=== PATIENT | female | born 1970 | race Caucasian/White ===

== ENCOUNTER 2018-04-14 18:43 | Emergency (ER) | payer OTHER ==
[~2018-04-14] VITALS: Ht 139.7 cm; Wt 49.0 kg
[~2018-04-14 18:43] MED LIST: ACTICIN 5% CREA60 G1 TOP; AUGMENTIN 500-1 EACH PO; BACTROBAN CREAM30 G1 TOP; EXCEDRIN MIGRA1 EAC1 PO; HYDROCODON-ACE1 EACH PO; HYDROCODONE-AP1 EAC6 PO; IBUPROFEN 800800 M1 PO; IBUPROFEN 800800 MG PO; KEFLEX500 MG PO; LIDOCAINE VISC100 M1 SWISH&SPIT; NAPROSYN500 MG PO; NOHOMEMEDICATIONS; NORCO 5-325 TA1 EACH PO; PENICILLIN V P500 MG PO; PREDNISONE 10 M10 MG PO; ROBAXIN 750 MG750 M1 PO; ROBAXIN500 MG PO; TAMIFLU75 MG PO; TRAMADOL 50 MG50 MG PO
[2018-04-14] MEDS ORDERED: NORCO 5-325 TA1 EACH PO (20:02)
[2018-04-14 20:37] VITALS: BP 106/58
[2018-07-08] MEDS ORDERED: WELLBUTRIN 100100 MG PO (11:12)
[2018-07-08] MEDS ORDERED: FLEXERIL PO (11:12)
[2018-07-08] MEDS ORDERED: NORTRIPTYLINE H10 M2 PO (11:13)
[2018-07-24] MEDS ORDERED: NORCO 5-325 TA1 EACH PO (08:14)
== END 2018-04-14 20:37 | disposition home or self-care (01) ==
LOC: M.ERS 18:43
DX: S67.192A Crushing injury of right middle finger, initial encounter (principal); F17.210 Nicotine dependence, cigarettes, uncomplicated; Z88.5 Allergy status to narcotic agent; W23.0XXA Caught, crushed, jammed, or pinched between moving objects, initial encounter; Y93.89 Activity, other specified; Y92.89 Other specified places as the place of occurrence of the external cause; Y99.8 Other external cause status

== ENCOUNTER → 2018-07-08 | Outpatient (CLI) | payer OTHER ==
[~2018-07-08] MED LIST changes: +FLEXERIL PO; +NORTRIPTYLINE H10 M2 PO; +WELLBUTRIN 100100 MG PO
--- NOTE | 2018-08-06 15:56 | PAINCON ---
[address] [address] PAIN MANAGEMENT CONSULTATION Name: DAVISFROYLAN Mar [id number] Admission: 07/08/18 Attend Phys: Romeo Ocampo MD Discharge: Date of : 68 Report #: [id number] THIS REPORT FOR: //name// CC: Marquita Ocampo DATE OF SERVICE: 07/08/2018 PRIMARY CARE PHYSICIAN: Marquita Sylvester DO CHIEF COMPLAINT: Low back pain. HISTORY OF PRESENT ILLNESS: The patient is a 48-year-old female who has been referred to the pain clinic. The patient has a history of low back pain. It has been problematic for a number of years. She has had lumbar radiculopathy in the past. States that this pain is different from that pain. She did have pain, which was radiating down into her right buttocks and leg. She feels that this pain is different. It is constant and aching. 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 Notes that the pain continues to be quite problematic. She rates it as an 8/10. Certain exercises exacerbate the discomfort. Finds that Diclofenac is helpful. Also, finds muscle spasms improved with use of Flexeril. Pain does impact her ability to do her job. Pain can increase from a baseline of 6 to 9-10 at the end of the day. States that she had an x-ray of her back and things were "okay." Denies any bowel or bladder dysfunction as a result of the pain. The patient did try gabapentin. Notes that this medication caused heart palpitations. A recent x-ray taken showed no acute compression fractures or subluxations of the lumbar spine. She did have moderate spondylosis involving L4-L5 and L5-S1. ALLERGIES: CODEINE CAUSES ITCHING. GABAPENTIN CAUSED SOME HEART PALPITATIONS AND SIDE EFFECTS. CURRENT MEDICATIONS: Diclofenac 50 mg b.i.d., Flexeril 10 mg 1 p.o. t.i.d., nortriptyline 25 mg 1 at bedtime, and bupropion 100 mg b.i.d. PAST MEDICAL HISTORY: Migraine headaches, which are episodic. Renal stones, last flare 2007, hepatitis C, history of IV drug use in 10 years, has used meth, and history of hepatitis panel with hepatitis C antibody test reactive. PAST SURGICAL HISTORY: 1. Tubal ligation. 2. Back surgery for ruptured disk, L4-L5, [facility] in 1999. 3. Cholecystectomy in 1998. 4. Left knee arthroscopy for chipped bone. 5. Right ankle surgery, ganglion cyst. 6. Left ring [place] [address] PAIN MANAGEMENT CONSULTATION Name: FROYLAN DAVIS Room: [facility]#: [id number] Admission: 07/08/18 Attend Phys: Romeo Ocampo MD Discharge: Date of : 68 Report #: [id number] 7. Comminuted fracture in 2013. 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 She is working at this juncture. REVIEW OF SYSTEMS: Generally good health, headaches/migraines, back pain, difficulty walking, frequent recurring headaches, numbness and tingling sensation in fingers with yawning. PAIN CLINIC ASSESSMENT: 1. Osteoarthritis. The patient is not being treated for osteoarthritis. 2. Rheumatoid arthritis. The patient is not being treated for rheumatoid arthritis. 3. Height 4 feet 6 inches, weight 111 pounds, BMI is 26.9. 4. Vital Signs: blood pressure 116/70, heart rate 90, respiratory rate 16, room air saturation 95%, temperature 98.3. 5. Pain intensity 8/10. 6. Fall history: The patient has not fallen in the last 3 months. 7. Blood thinner. The patient is not on a blood thinning medication. 8. History of hypertension. The patient has not been treated for hypertension. 9. Opioid therapy greater than 6 weeks. The patient is not receiving opioid therapy other than on occasion from Dr. Sylvester. 10. Risk assessment tool elevated for opioid use. 11. Functional assessment tool 48/70 for pain impact score. 12. Recreational drug use. The patient denies recreational drug use at this juncture. 13. Tobacco: The patient smokes 1 pack of cigarettes per day and has smoked for the last 20 years. Discussed with the benefits of smoking cessation with the patient. 14. Alcohol: The patient drinks alcoholic beverages only on occasion. PHYSICAL EXAMINATION: GENERAL: The patient is a well-developed, well-nourished white female. She is short for stature. HEENT: Normocephalic, atraumatic. Extraocular eye muscles intact. Sclerae nonicteric. Mucous membranes are moist. NECK: Without adenopathy or JVD. HEART: Regular rate. S1, S2. ABDOMEN: Nontender. Bowel sounds are present. LUNGS: Clear to auscultation without rhonchi or rales. EXTREMITIES: Upper extremity muscle strength is judged to be 5/5 for the major muscle groups in the upper extremity. Deep tendon reflexes +1 for the biceps bilaterally. Triceps and brachioradialis absent. [employer] strength 5/5. The patient has a ring finger, status post pin placement. The patient states she slammed her finger in the car door some time ago. Lower extremity, the patient with muscle strength to be 5/5 for the major muscle groups. She is able to rise [facility] [address] [place] [address] PAIN MANAGEMENT CONSULTATION Name: FROYLAN DAVIS [facility]: [facility].#: [id number] Admission: 07/08/18 Attend Phys: Romeo Ocampo MD Discharge: Date of : 68 Report #: [id number] on her toes. Rises on her heels. Left and right lateral bending were not very problematic. Left and right lateral rotation cause some increased pain in the right low back area. Lumbar extension cause increased pain and discomfort in the lumbar area. The patient in the sitting position with notes recurrence and reproduction of pain and discomfort in the lumbar area with palpation in the area of the left as well as the right L5-S1 area in the paraspinous muscle area near the posterior superior iliac spine. Palpation in these areas, both reproduce pain and discomfort, which the patient is complaining. Anterior spring test was negative. Posterior spring test negative. Left and right Sim's sign or Sim's maneuver generally unremarkable. Deep tendon reflexes trace at the knees bilaterally. Absent at the ankles. IMPRESSION: 1. Myofascial pain, low back area with palpation in the low back area. 2. Migraine headaches, which are episodic. 3. Renal stones, last flare 2007. 4. Hepatitis C. 5. History of IV drug use in 10 years. 6. Has used methamphetamine. 7. History of hepatitis panel with hepatitis C antibody test reactive. RECOMMENDATIONS: We discussed treatment options with the patient. Risks and benefits of trigger point injections were discussed. Possible complications of the procedures were reviewed. The patient will return to the pain clinic after information has been presented to her insurance company. She will return at which time we will consider trigger point injections to the left than the right posterior superior iliac spine area near the gluteus caridad and latissimus dorsi. We would like to thank you for letting us participate in her care. We hope she continues to improve. <ELECTRONICALLY SIGNED> By: Romeo Ocampo MD 08/06/18 1556 1224 1444N. Alvino Ocampo MD /nt
== END ==
LOC: M.PC 05:18
DX: M79.18 Myalgia, other site (principal); G43.909 Migraine, unspecified, not intractable, without status migrainosus; N20.0 Calculus of kidney; B19.20 Unspecified viral hepatitis C without hepatic coma; Z79.899 Other long term (current) drug therapy

== ENCOUNTER → 2018-07-24 | Outpatient (CLI) | payer OTHER ==
--- NOTE | 2018-08-06 16:28 | PAINCON ---
[address] [address] PAIN MANAGEMENT CONSULTATION Name: FROYLAN DAVIS Room: [facility] [place]#: [id number] Admission: 07/24/18 Attend Phys: Romeo Ocampo MD Discharge: Date of : 68 Report #: [id number] THIS REPORT FOR: //name// CC: Marquita Ocampo DATE OF SERVICE: 07/24/2018 FOLLOWUP COMPLAINT: "Here for an injection in the low back." FOLLOWUP HISTORY: The patient is a 48-year-old female who has been seen in the Pain Clinic. As you recall, she has back pain. She has had pain for a number of years. She has had problems with lumbar radiculopathy. She has had some pain, which has radiated down her buttocks in the past. At this point, she feels that this pain is located in the lower portion of her back. 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 These activities exacerbate her pain and discomfort. She has had pain, which has improved with use of Flexeril. She has pain, which she rates as a 5/10 at this juncture. This weekend, she noticed worsening of her pain. She has some difficulty to the point that she considered going to the Emergency Room that has improved somewhat. As you recall, she has hepatitis C. She is about to start treatment for this in the next couple of days. ALLERGIES: CODEINE CAUSED ITCHING, GABAPENTIN CAUSED HEART PALPITATIONS AND SIDE EFFECTS. PAIN CLINIC ASSESSMENT/PQRS: 1. Osteoarthritis: The patient is not being treated for osteoarthritis or rheumatoid arthritis. 2. Height 4 feet 6 inches, weight 114 pounds, BMI is 27.4. 3. Vital signs: Blood pressure 121/71, heart rate 85, respiratory rate 16, room air saturation is 98%, temperature 98.3. 4. Pain score: 5/10. 5. Fall history: The patient has not fallen in the last 3 months. 6. Blood thinner: The patient is not a blood thinning medication. 7. Hypertension: The patient is not being treated for hypertension. 8. Opioid therapy greater than 6 weeks: The patient is not on opioid medications. 9. Risk assessment tool. 10. Functional assessment tool: 48/70 for pain impact. 11. Recreational drug use: The patient denies use of recreational drugs at this juncture. 12. Tobacco: The patient smokes 1 pack of cigarettes per day and has for the past 20 years. We discussed the need for smoking cessation. 13. Alcohol: The patient denies use of alcoholic [place] [address] PAIN MANAGEMENT CONSULTATION Name: FROYLAN DAVIS Room: [facility]#: [id number] Admission: 07/24/18 Attend Phys: Romeo Ocampo MD Discharge: Date of : 68 Report #: [id number] PHYSICAL EXAMINATION: GENERAL: The patient is a well-developed, well-nourished white female. She is short in stature. HEENT: Normocephalic, atraumatic. Extraocular eye muscles intact. Sclerae nonicteric. Mucous membranes are moist. NECK: Without adenopathy or JVD. LUNGS: Clear to auscultation, without rhonchi or rales. HEART: Regular rate. S1 and S2. ABDOMEN: Nontender. Bowels sounds present. EXTREMITIES: Upper extremity muscle straight judged to be 5/5 for the major muscle groups. Lower extremity muscle strength judged to be 5/5 for the major muscle groups. The patient is without scoliosis, kyphosis or lordosis. Palpation in the area of the left as well as the right posterior superior iliac spine, near the gluteus caridad and latissimus dorsi both have trigger points which are prominent and cause a reproduction of the patient's pain and discomfort. IMPRESSION: 1. Myofascial pain in the low back area, left and right. 2. Migraine headaches, which are episodic. 3. Renal stones, last flare in 2007. 4. Hepatitis C. 5. History of IV drug use in the past. 6. The patient has used methamphetamine. 7. History of hepatitis panel, hepatitis C antibody test reactive. The patient now is to undergo treatment. RECOMMENDATIONS: We discussed treatment options with the patient. Risks and benefits of a trigger point injection in the low back area were again reviewed. The patient is having pain and discomfort, which seems to be of muscular in nature. Palpation in the area of the left as well as the right posterior superior iliac spine areas reproduce her pain and discomfort. She has returned today for an injection. Risks and benefits of the procedure were discussed. They include but are not limited to infection, increased muscle soreness, no improvement, worsening of pain, and she elects to proceed. PROCEDURE NOTE: The patient was taken to the procedure area. She was assisted in getting on the examination table. She was placed in a side position perpendicular to the bed. A chair was placed under her feet. The patient leaned forward as though she is going to tie her shoe. The trigger points were identified on the left and the right. The left area was sterilely prepped with a Betadine solution as well as the right. A 25-gauge needle was then advanced in the area of the left latissimus dorsi and gluteus caridad. The patient states this did reproduce her discomfort. A 25-gauge needle was then advanced into the area of discomfort. A total of 8 mL of 0.5% bupivacaine and 40 mg triamcinolone was injected on the left side. [place] [address] PAIN MANAGEMENT CONSULTATION Name: DAVISFROYLAN L Room: [facility]#: [id number] Admission: 07/24/18 Attend Phys: Romeo Ocampo MD Discharge: Date of : 68 Report #: [id number] manner. A total of 40 mg triamcinolone was injected with a total of 8 mL of 0.5% bupivacaine. The patient remained in the Pain Clinic for an appropriate amount of time. She will follow up in the future as needed. We would like to thank you for letting us participate in her care. We hope she continues to improve. <ELECTRONICALLY SIGNED> By: Romeo Ocampo MD 08/06/18 1628 0919 0948N. Alvino Ocampo MD /nt
== END | disposition home or self-care (01) ==
LOC: M.PC 02:48
DX: M79.18 Myalgia, other site (principal); G43.909 Migraine, unspecified, not intractable, without status migrainosus; B19.20 Unspecified viral hepatitis C without hepatic coma; Z87.442 Personal history of urinary calculi; Z88.6 Allergy status to analgesic agent; Z79.891 Long term (current) use of opiate analgesic; Z98.890 Other specified postprocedural states

== ENCOUNTER 2019-04-04 08:16 | Emergency (ER) | payer OTHER ==
[~2019-04-04] VITALS: Ht 139.7 cm; Wt 49.0 kg
[2019-04-04 10:21] VITALS: BP 118/74
== END 2019-04-04 10:23 | disposition home or self-care (01) ==
LOC: M.ERS 08:16
DX: G43.909 Migraine, unspecified, not intractable, without status migrainosus (principal); F17.210 Nicotine dependence, cigarettes, uncomplicated; Z88.5 Allergy status to narcotic agent

== ENCOUNTER 2020-04-24 07:56 | Emergency (ER) | payer OTHER ==
[~2020-04-24] VITALS: Ht 139.7 cm; Wt 49.9 kg
[2020-04-24] MEDS ORDERED: NORCO 5-325 TA1 EAC2 PO (09:01)
[2020-04-24 09:14] VITALS: BP 129/70
== END 2020-04-24 09:15 | disposition home or self-care (01) ==
LOC: M.ERS 07:56
DX: M54.5 Low back pain (principal); F17.210 Nicotine dependence, cigarettes, uncomplicated; Z88.5 Allergy status to narcotic agent; Z88.8 Allergy status to other drugs, medicaments and biological substances; Z98.51 Tubal ligation status

== ENCOUNTER 2021-04-11 17:25 | Emergency (ER) | payer OTHER ==
[~2021-04-11] VITALS: Ht 139.7 cm; Wt 49.9 kg
[~2021-04-11 17:25] MED LIST changes: +NORCO 5-325 TA1 EAC2 PO
[2021-04-11 17:33] VITALS: BP 125/64
== END 2021-04-11 18:45 | disposition left against medical advice (07) ==
LOC: M.ERS 17:25
DX: Z53.21 Procedure and treatment not carried out due to patient leaving prior to being seen by health care provider (principal)

== ENCOUNTER 2021-04-11 20:52 | Inpatient (IN) | payer OTHER ==
[~2021-04-11] VITALS: Ht 139.7 cm; Wt 52.2 kg
--- NOTE | ~2021-04-11 | EMS ---
[facility] [address] [place] [address] EMS Patient Care Report Name: FROYLAN DAVIS Room: [address] IN M.R.#: [id number] Admission: 04/11/21 Attend Phys: Florian Bell MD, Discharge: Date of : 68 Report #: [id number] THIS REPORT FOR: //name// Report Transmitted: 04/12/2021 06:25 EMS Care Summary [facility] Incident [id number] @ 04/11/2021 20:19 Incident Location [address] [place], [place] [id number] Patient FROYLAN DAVIS Female, 51 Years 1970 Patient Address [address] [place], [place] [id number] Patient History Back Pain (Chronic), Patient Allergies Codeine,Gabapentin, Patient Medications [place], Chief Complaint chest pain Disposition Transported No Lights/[place] Dispatch Reason Chest Pain (Non-Traumatic) Transported To [facility] Narrative Pt. was walk in at [facility]. Pt. stated that she c/o chest pain since approx. 1500 today. Pt. was seen in triage at [facility] and had left after EKG was done because her chest pain had subsided. Pt. stated that when she got back into [facility] her chest pain returned. Pt. described her pain as "burning, [place] [address] [place] [address] EMS Patient Care Report Name: FROYLAN DAVIS Room: [address] [place] M.R.#: [id number] Admission: 04/11/21 Attend Phys: Florian Bell MD, Discharge: Date of : 68 Report #: [id number] stabbing, and tight" radiating to the jaw. Pt. rated her pain 10/10. Initial EKG showed sinus rhythm with artifact and was repeated with more clear EKG showing sinus rhythm. En route IV was started, pt. received ASA and NTG bringing pain to 8/10. EKG during transport was sinus rhythm with artifact. EKG was repeated upon arrival at ED which showed ST elevation in leads 2, 3, and AVF showing possible inferior STEMI. ED staff was informed of changes right away and activated STEMI protocol. Pt. was transported to [facility] for emergency and cardiac services. Initial Vitals @20:31 @20:23 @20:48MI Suspected: true @20:40P: 87,R: 20,BP: 138/67,Pain: 8/10,GCS: 15,SpO2: 98,Revised Trauma: 12, @20:30P: 81,R: 20,BP: 126/77,Pain: 9/10,GCS: 15,SpO2: 99,Revised Trauma: 12, @20:19P: 82,R: 20,BP: 175/91,Pain: 10/10,GCS: 15,Glucose: 117,SpO2: 100,Revised Trauma: 12, Assessments @20:19MENTAL:No Abnormalities,SKIN:No Abnormalities,HEENT:Head/Face: No Abnormalities,Eyes: No Abnormalities,Neck/Airway: No Abnormalities,LUNG SOUNDS:General: No Abnormalities,Left Upper: No Abnormalities,Right Upper: No Abnormalities,Left Lower: No Abnormalities,Right Lower: No Abnormalities,ABDOMEN:General: No Abnormalities,Left Upper: No Abnormalities,Right Upper: No Abnormalities,Left Lower: No Abnormalities,Right Lower: No Abnormalities,PELVIS//GI:No Abnormalities,EXTREMITIES:Left Arm: No Abnormalities,Right Arm: No Abnormalities,Left Leg: No Abnormalities,Right Leg: No Abnormalities,PULSE:Radial: 2+ Normal,NEURO:No Abnormalities, Impression Chest Pain / Discomfort Procedures @20:2312-Lead ECGResponse: UnchangedSucceeded@20:4812-Lead ECGResponse: UnchangedSucceeded@20:3112-Lead ECGResponse: UnchangedSucceeded@20:28Saline Lock 10cc (20 ga) Site: Forearm-RightResponse: UnchangedSucceeded@20:30Aspirin - 324 Milligrams (mg) - OralResponse: Improved@20:33Nitroglycerin - 0.4 Milligrams (mg) - BuccalResponse: Improved Timeline 20:19,At Patient 20:19,Call Received 20:19,Dispatched 20:19,En Route 20:19,Initial Responder On Scene 20:19,[place] [address] EMS Patient Care Report Name: FROYLAN DAVIS Room: [address]#: [id number] Admission: 04/11/21 Attend Phys: Florian Bell MD, Discharge: Date of : 68 Report #: [id number] 20:19,BP: 175/91 M,PULSE: 82,RR: 20 R,SPO2: 100 Ox,ETCO2: ,B,PAIN: 10,GCS: 15, 20:23,12-Lead ECG,Response: UnchangedSucceeded, 20:23,BP: / M,PULSE: ,RR: R,SPO2: Ox,ETCO2: ,BG: ,PAIN: ,GCS: , 20:28,Depart Scene 20:28,Saline Lock 10cc 20 ga Site: Forearm-Right,Response: UnchangedSucceeded, 20:30,Aspirin - 324 Milligrams (mg) - Oral,Response: Improved 20:30,BP: 126/77 M,PULSE: 81,RR: 20 R,SPO2: 99 Ox,ETCO2: ,BG: ,PAIN: 9,GCS: 15, 20:31,12-Lead ECG,Response: UnchangedSucceeded, 20:31,BP: / M,PULSE: ,RR: R,SPO2: Ox,ETCO2: ,BG: ,PAIN: ,GCS: , 20:33,Nitroglycerin - 0.4 Milligrams (mg) - Buccal,Response: Improved 20:40,BP: 138/67 M,PULSE: 87,RR: 20 R,SPO2: 98 Ox,ETCO2: ,BG: ,PAIN: 8,GCS: 15, 20:47,At Destination 20:48,12-Lead ECG,Response: UnchangedSucceeded, 20:48,BP: / M,PULSE: ,RR: R,SPO2: Ox,ETCO2: ,BG: ,PAIN: ,GCS: , 20:50,Transfer Patient 21:04,Call Closed 21:19,In District Disclaimer v1.1 Copyright 2020 [employer] This EMS Care Summary contains data elements from the applicable legal record (which may be displayed differently). It is designed to provide pertinent information for the following purposes: continuity of care, clinical quality, and state data reporting. The complete legal record is available to ED staff and administrators of the receiving hospital in [facility]'s Patient Tracker. All data is provided "as is."
[2021-04-11 21:14] LABS: ABSOLUTE BASOPHILS 0.2 thou/uL (0.0-0.2); ABSOLUTE EOSINOPHILS 0.3 thou/uL (0.0-0.7); ABSOLUTE LYMPHOCYTES 3.9 thou/uL (0.8-5.3); BASOPHILS 1.3 %; EOSINOPHILS 1.7 %; HEMATOCRIT 40.5 % (37.0-47.0); LYMPHOCYTES 25.4 %; MCH 31.7 pg (26.0-34.0); MCHC 34.6 g/dL (28.0-37.0); MCV 91.7 fL (80.0-100.0); MONOCYTES 6.5 %; NUCLEATED RBCS 0 /100WBC; PLATELET COUNT* 238 thou/uL (150-400); POLYS 65.1 %; RBC 4.42 mil/uL (4.20-5.00); RDW-CV 13.4 % (10.5-14.5); WBC 15.4 thou/uL (4.0-11.0)
[2021-04-11 21:23] LABS: CALCIUM 8.8 mg/dL (8.5-10.1); CREATININE 0.9 mg/dL (0.6-1.3); POTASSIUM 3.6 mmol/L (3.5-5.1)
[2021-04-11 21:26] LABS: APTT 23.4 Seconds (25.0-31.3); INR 0.9; PROTIME 9.9 Seconds (9.20-11.50)
[2021-04-11 21:28] LABS: ALBUMIN 3.6 g/dL (3.4-5.0); TOTAL BILIRUBIN 0.2 mg/dL (<0.1-1.0); TOTAL PROTEIN 7.1 g/dL (6.4-8.2)
[2021-04-11 21:45] VITALS: BP 108/72
[2021-04-12] VITALS (17 sets, daily range): BP systolic 94–134; BP diastolic 52–80
[2021-04-12 03:29] LABS: HEMATOCRIT 36.7 % (37.0-47.0); HEMOGLOBIN 12.7 gm/dL (12.0-15.0); MCH 32.1 pg (26.0-34.0); MCHC 34.5 g/dL (28.0-37.0); MCV 92.9 fL (80.0-100.0); MPV 8.2 fl. (7.2-11.1); RBC 3.95 mil/uL (4.20-5.00); RDW-CV 13.3 % (10.5-14.5); WBC 13.5 thou/uL (4.0-11.0)
[2021-04-12 03:39] LABS: ALBUMIN 3.2 g/dL (3.4-5.0); ALKALINE PHOSPHATASE 88 U/L (46-116); ANION GAP 9 mmol/L (7-16); BUN 17 mg/dL (7-18); CALCIUM 8.1 mg/dL (8.5-10.1); CHLORIDE 104 mmol/L (98-107); CHOLESTEROL 172 mg/dL (<200); CO2 24 mmol/L (21-32); CREATININE 0.6 mg/dL (0.6-1.3); GLUCOSE 127 mg/dL (70-99); HDL CHOLESTEROL 40 mg/dL (>40); LDL CHOLESTEROL 99 mg/dL (<100); POTASSIUM 4.1 mmol/L (3.5-5.1); SGOT 474 U/L (15-37); SGPT 273 U/L (30-65); SODIUM 137 mmol/L (136-145); TC:HDL 4.3 Ratio (Not establshd); TOTAL BILIRUBIN 0.5 mg/dL (<0.1-1.0); TOTAL PROTEIN 6.2 g/dL (6.4-8.2); TRIGLYCERIDE 166 mg/dL (<150); VLDL 33 mg/dL (<40)
[2021-04-12 03:40] LABS: SERUM ASSESSMENT Clear
--- NOTE | 2021-04-12 09:24 | EKG ---
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1970 Requested By: Carline Miranda Order Number: [id number] MD: Ermias Mart Measurements Intervals [place] Rate: 75 P: 58 HI: 116 QRS: 90 QRSD: 84 T: 75 QT: 351 QTc: 392 Interpretive Statements Sinus rhythm Borderline short HI interval Borderline right axis deviation Borderline low voltage, extremity leads ST elev, acute myocardial injury Electronically Signed On 04-12-2021 9:24:00 CDT by Ermias Mart [email or web address] <ELECTRONICALLY SIGNED> By: Ermias Mart MD, FAC 04/12/21923 54 54 Ermias Mart MD, [facility] /EPI
--- NOTE | 2021-04-12 09:26 | EKG ---
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
--- NOTE | 2021-04-12 09:29 | EKG ---
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
--- NOTE | 2021-04-12 10:25 | CARD ---
[address] [address] CARDIAC CATH REPORT Name: SANDI DAVIS Room: [address] IN [facility].#: [id number] Admission: 04/11/21 Attend Phys: Florian Bell MD, Discharge: Date of : 68 Report #: [id number] THIS REPORT FOR: cc: Marquita Sylvester Ahmad W. DO Holkins, John M. MD [facility] ~ APPROVED REPORT Study performed: 04/11/2021 21:44:13 Patient Details Patient Status: ED Room #: The patient is a 51 year-old female Event Personnel Florian Bell Clean Up Worker, Jacqueline Funes RN Senior Embedded Software Engineer, Sandi Rojas RN Monitor, Juan Jose Amaral INSURANCE INVESTIGATOR Scrub Procedures Performed Art Access - R femoral artery* Left Heart Cath w/or w/o Coronaries HAKEEM Revasc AMI Total/Sub Single CIRC;Hemostasis w/ Mynx Indication STEMI Risk Factors Tobacco History () Admission/Lab Medications/Medications given during procedure Aspirin, Thrombin Inhibitors Procedure Narrative The patient was brought emergently to the Cardiac Catheterization Laboratory and was prepped and draped in a sterile manner. The right femoral was infiltrated with 2% Lidocaine subcutaneous anesthesia. IV conscious sedation was used throughout procedure with appropriate monitoring and was performed in the presence of a registered nurse who was an independent trained observer other than the physician performing the procedure. A 6fr Ultimum sheath was inserted into the right femoral artery. Coronary angiography was performed using coronary diagnostic catheters. The right coronary system was accessed and visualized with a Diagnostic JR4 catheter[place] [address] CARDIAC CATH REPORT Name: SANDI DAVIS Room: [address]#: [id number] Admission: 04/11/21 Attend Phys: Florian Bell MD, Discharge: Date of : 68 Report #: [id number] system was accessed and visualized with a Diagnostic JL3.5 catheter. Left ventricular/Aortic Valve gradient assessed via catheter pullback. Pre-demployment femoral angiogram was performed . Closure device was deployed with a 6 Fr Mynx. The patient tolerated the procedure well and there were no complications associated with the procedure. There was no hematoma. Intraoperative Conscious Sedation Sedation start time: 21:57 Case end Time: 23:06 Fentanyl 50 mcg Versed 3 mg Fluoro Time: 20.2 minutes Dose: DAP 12301 cGycm2 1448 mGy Contrast Type and Amount: Omnipaque 420 ml Coronary Angiography The patient's coronary anatomy is right dominant. Diagnostic Cath Left Main 0% narrowing LAD 30% mid vessel narrowing and 50% proximal first diagonal narrowing Circumflex 70% proximal with 90% mid vessel stenosis, the latter with associated thrombus Right Coronary 50% mid vessel narrowing Left Ventriculography Left Ventriculography was not performed. Hemodynamics The aortic pressure is 147/77 mmHg with a mean of 105 mmHg. The left ventricular pressure is 135/1 mmHg with a mean of mmHg. The left ventricular end diastolic pressure is 18 mmHg. There was no gradient across the aortic valve upon pullback. PCI Technique Lesion Anticoagulation was achieved with Angiomax. Percutaneous coronary intervention was performed on the mid circumflex artery segment. The lesion stenosis prior to intervention was 90% with TARA 2-3 flow. A 6FR .070 XB LAD 3SH Guide Catheter was used to engage the ostium. A IG: BMW 190cm Interventional Guidewire was used to cross the lesion[place] [address] CARDIAC CATH REPORT Name: YUE DAVISCass Manuel Room: [address] IN [facility]#: [id number] Admission: 04/11/21 Attend Phys: Florian Bell MD, Discharge: Date of : 68 Report #: [id number] A Balloon catheter Mini Trek RX 2.0 X 8 was inserted and inflated up to 12.00atm for 11seconds. Additional Inflation: 18.00atm for 12seconds. Additional Inflation: 20.00atm for 10seconds. STENT DEPLOYMENT A drug-eluting stent Quimby RX Stent 2.06U63ff was inserted and inflated up to 12.00atm for 9seconds. Additional Inflation: 14.00atm for 5seconds. 2.0 x 12 mm Gerry stent was deployed just distal to the previously deployed stent and inflated to 12 to 16 jaswant Final angiography reveals 0 % stenosis with TARA 3 flow. STENT DEPLOYMENT Additional Inflation: jaswant for 9seconds. Additional Inflation: jaswant for 9seconds. Conclusion 1. Acute inferior wall STEMI 2. Coronary artery disease characterized by the following: A 70% proximal with 90% mid circumflex stenosis, with thrombus associated with the latter lesion B 30% mid LAD narrowing with 50% proximal first diagonal narrowing C dominant right coronary artery with 50% mid vessel narrowing 2. Moderate elevation of left ventricular end-diastolic pressure at rest 3. Successful PCI with deployment of sequential drug-eluting stents in the proximalmid circumflex with 0% residual narrowing and TARA-3 flow to the distal vessel with no residual thrombus Recommendations Smoking Cessation Cardiac Risk Reduction Program Aggressive Medical Therapy Medications Administered Aspirin (any) [place] [address] CARDIAC CATH REPORT Name: SANDI DAVIS Room: [address]#: [id number] Admission: 04/11/21 Attend Phys: Florian Bell MD, Discharge: Date of : 68 Report #: [id number] Diagnostic Cath Approved by: Florian Bell MD Date/Time: 04/12/2021 10:21:31 <ELECTRONICALLY SIGNED> By: Florian Bell MD, [facility] 04/12/21 1025 1025 1025Florian Bell MD, [facility] /INF
--- NOTE | 2021-04-12 13:36 | 2DMMODE ---
[place] [address] 2 D/M-MODE ECHOCARDIOGRAM Name: YUE DAVISCass Manuel Room: [address] IN .R.#: [id number] Admission: 04/11/21 Attend Phys: Elinor Gandhi Discharge: Date of : 68 Date of Service: 04/12/21 1336 Report #: [id number] THIS REPORT FOR: cc: Marquita Sylvester,Ermias Hart MD [facility] ~ APPROVED REPORT Study performed: 04/12/2021 10:11:15 EXAM: Comprehensive 2D, Doppler, and color-flow Echocardiogram Patient Location: In-Patient Room #: 006 Status: routine BSA: 1.39 HR: 60 bpm BP: 111/64 mmHg Rhythm: NSR Other Information Study Quality: Good Indications Acute NM 2D Dimensions IVSd: 7.51 (7-11mm) LVOT Diam: 16.77 (18-24mm) LVDd: 38.19 mm PWd: 8.09 (7-11mm) Ascending Ao: 26.28 (22-36mm) LVDs: 23.08 (25-40mm) Aortic Root: 24.73 mm Volumes Left Atrial Volume (Systole) LA ESV Index: 25.50 mL/m2 Aortic Valve AoV Peak Edgar.: 1.75 m/s AO Peak Gr.: 12.22 mmHg LVOT Max P.60 mmHg AO Mean Gr.: 6.10 mmHg LVOT Mean P.06 mmHg LVOT Max V: 1.07 m/s AO V2 VTI: 38.19 cm LVOT Mean V: 0.65 m/s LVOT V1 VTI: 25.47 [place] [address] 2 D/M-MODE ECHOCARDIOGRAM Name: FROYLAN DAVIS Room: [address] IN [facility].#: [id number] Admission: 04/11/21 Attend Phys: Elinor Gandhi Discharge: Date of : 68 Date of Service: 04/12/21 1336 Report #: [id number] Mitral Valve E/A Ratio: 1.72 MV Decel. Time: 205.12 ms MV E Max Edgar.: 1.13 m/s MV PHT: 59.49 ms MVA (PHT): 3.70 cm2 TDI E/Lateral E': 7.06 E/Medial E': 8.69 Medial E' Edgar.: 0.13 m/s Lateral E' Edgar.: 0.16 m/s Pulmonary Valve PV Peak Edgar.: 0.83 m/s PV Peak Gr.: 2.74 mmHg Tricuspid Valve RAP Estimate: 5.00 mmHg TR Peak Gr.: 21.42 mmHg RVSP: 26.00 mmHg PA Pressure: 26.00 mmHg Left Ventricle The left ventricle is normal size. There is normal LV segmental wall motion. There is normal left ventricular wall thickness. Left ventricular systolic function is normal. The left ventricular ejection fraction is within the normal range. LVEF is 60-65%. The left ventricular diastolic function is normal. Right Ventricle The right ventricle is normal size. The right ventricular systolic function is normal. Atria The left atrium size is normal. The right atrium size is normal. Aortic Valve The aortic valve is normal in structure. No aortic regurgitation is present. There is no aortic valvular stenosis. Mitral Valve The mitral valve is normal in structure. Trace mitral regurgitation. No evidence of mitral valve stenosis. Tricuspid Valve The tricuspid valve is normal in structure. Mild tricuspid regurgitation. No [place] [address] 2 D/M-MODE ECHOCARDIOGRAM Name: FROYLAN DAVIS Room: [address]#: [id number] Admission: 04/11/21 Attend Phys: Elinor Gandhi Discharge: Date of : 68 Date of Service: 04/12/21 1336 Report #: [id number] Pulmonic Valve The pulmonary valve is normal in structure. There is no pulmonic valvular regurgitation. Great Vessels The aortic root is normal in size. IVC is normal in size and collapses >50% with inspiration. Pericardium There is no pericardial effusion. <Conclusion> There is normal LV segmental wall motion. LVEF is 60-65%. Trace mitral regurgitation. Mild tricuspid regurgitation. No pulmonary hypertension. <ELECTRONICALLY SIGNED> By: Ermias Mart MD, [facility] 04/12/21 1336 1336 1336 Ermias Mart MD, FACC /INF
--- NOTE | 2021-04-12 13:47 | EKG ---
[place] [address] ELECTROCARDIOGRAM REPORT Name: FROYLAN DAVIS Room: [address] ADM IN .R.#: [id number] Admission: 04/11/21 Attend Phys: Elinor Gandhi Discharge: Date of : 68 Date of Service: 04/11/21 1730 Report #: [id number] THIS REPORT FOR: //name// [facility] ED Test Date: 2021-04-11 Test Time: 17:30:50 Pat Name: FROYLAN DAVIS Department: Room: [facility] Gender: F Director Presales: TP : 1970 Requested By: Florian Bell Order Number: [id number] Marina MD: Ermias Mart Measurements Intervals [place] Rate: 85 P: 61 NC: 125 QRS: 81 QRSD: 81 T: 46 QT: 341 QTc: 406 Interpretive Statements Sinus rhythm Low voltage, precordial leads No previous ECG available for comparison Electronically Signed On 04-12-2021 13:47:36 CDT by Ermias Mart [email or web address] <ELECTRONICALLY SIGNED> By: Ermias Mart MD, [facility] 04/12/21 1347 1730 1730 Ermias Mart MD, [facility] /EPI
[2021-04-13 01:15] VITALS: BP 97/62
[2021-04-13 05:36] VITALS: BP 116/46
[2021-04-13] MEDS ORDERED: EFFIENT10 MG PO (09:35)
[2021-04-13] MEDS ORDERED: LIPITOR40 MG PO (09:37)
[2021-04-13] MEDS ORDERED: BAYER CHEWABLE81 MG PO (09:37)
[2021-04-13] MEDS ORDERED: LISINOPRIL5 MG PO (09:37)
[2021-04-13 10:27] VITALS: BP 116/46
[2021-04-13 10:50] VITALS: BP 114/52
[2021-04-13] MEDS ORDERED: NITROGLYCERIN0.4 MG SUBLING (11:14)
[2021-04-13 11:46] VITALS: BP 102/52
--- NOTE | 2021-04-17 09:13 | H ---
[place] [address] HISTORY AND PHYSICAL Name: FROYLAN DAVIS Room: [address]#: [id number] Admission: 04/11/21 Attend Phys: Florian Bell MD, Discharge: 04/13/21 Date of : 68 Report #: [id number] THIS REPORT FOR: cc: Marquita Sylvester Ahmad W. DO Holkins,Florian Johnson MD [facility] ~ ADMIT DATE: 04/11/2021 The patient will be in the ICU, I do not know the room number. HISTORY OF PRESENT ILLNESS: The patient is a 51-year-old female with a history of tobacco use. She developed chest pain this afternoon at approximately 3:30 and ultimately sought assistance in the [facility]. She initially left without being seen, but there was recurrence of the discomfort and she again sought assistance in the Emergency Room. She was seen by Dr. Miranda, who felt that the chest pain was compatible with ischemia and EKG suggested acute inferior wall ST-segment elevation myocardial infarction. She received heparin, aspirin and nitrates. The pain persisted. I was asked to see the patient. She continued to have pain at that time. There is no history of prior chest pain at this time and no history of antecedent myocardial infarction. Risk factors include tobacco habituation, currently smoking 1 pack per day for many years and a positive family history of premature coronary disease in her father. She denies diabetes, known hyperlipidemia, peripheral vascular disease, renal insufficiency. PAST MEDICAL HISTORY: Remarkable for tobacco use. SOCIAL HISTORY: She is a current smoker. REVIEW OF SYSTEMS: Remarkable for the following: Some dyspnea with activity in the context of her tobacco use. ALLERGIES: INCLUDE CODEINE. PHYSICAL EXAMINATION: GENERAL: Demonstrates a moderately distressed middle-aged female. VITAL SIGNS: Blood pressure is 140/80, pulse rate is 74, respirations are 18 per minute. NECK: Jugular venous pressure is normal. CHEST: Clear. HEART: Reveals normal first and second heart sounds without murmurs or gallops. ABDOMEN: Soft. EXTREMITIES: Without edema, with intact femoral, [place] [address] HISTORY AND PHYSICAL Name: FROYLAN DAVIS Room: [address]#: [id number] Admission: 04/11/21 Attend Phys: Florian Bell MD, Discharge: 04/13/21 Date of : 68 Report #: [id number] IMAGING: EKG reveals acute inferior wall ST-segment elevation myocardial infarction with subtle lateral ST-T changes. Right precordium is unremarkable. IMPRESSION: 1. Acute inferior ST-segment elevation myocardial infarction . 2. Coronary artery disease. 3. Tobacco habituation. 4. Positive family history of coronary artery disease. In this context, I recommend an emergent catheterization, which was undertaken. This revealed 95% stenosis of the mid portion of the nondominant circumflex with local thrombus at the site and TARA 2-3 flow to the distal vessel. There was 60% mid right coronary narrowing and 40% mid LAD narrowing. I proceeded with PCI, deploying 2 drug-eluting stents in the mid circumflex with 0% residual narrowing, no residual thrombus and TARA 3 flow to the distal vessel. The patient's pain remitted and she was placed on dual antiplatelet therapy, statin, APRIL inhibition and beta blockade. She received Angiomax during the procedure for 2 hours post-procedurally. The patient was transferred to the ICU in stable condition. CRITICAL CARE TIME: 40 minutes, from 10:45 p.m. to 11:20 p.m. on 04/11/2021. <ELECTRONICALLY SIGNED> By: Florian Bell MD, [facility] 04/17/21 0913 2229 [id number] Bell MD, FACC /nt
== END 2021-04-13 11:45 | disposition home or self-care (01) | DRG 246 ==
LOC: M.ERS 20:52 → M.TBA-CV 21:11 → M.CL 21:11 → M.ICU 23:16 → M.TBA-CV 23:16 → M.ORTHSURG 23:16 → M.ICU 23:45 → M.ORTHSURG 04-12 11:49
PROVIDERS: Personal Emergency Response Attendant; ADMIT Internal Medicine; ATTEND Internal Medicine
PROC: B2111ZZ Fluoroscopy of Multiple Coronary Arteries using Low Osmolar Contrast (ICD-10-PCS; principal; 2021-04-11)
PROC: 027035Z Dilation of Coronary Artery, One Artery with Two Drug-eluting Intraluminal Devices, Percutaneous Approach (ICD-10-PCS; principal; 2021-04-11)
PROC: 4A023N7 Measurement of Cardiac Sampling and Pressure, Left Heart, Percutaneous Approach (ICD-10-PCS; principal; 2021-04-11)
DX: I21.19 ST elevation (STEMI) myocardial infarction involving other coronary artery of inferior wall (principal); I50.31 Acute diastolic (congestive) heart failure; E78.1 Pure hyperglyceridemia; F17.200 Nicotine dependence, unspecified, uncomplicated; I25.10 Atherosclerotic heart disease of native coronary artery without angina pectoris; Z20.822 Contact with and (suspected) exposure to COVID-19; Z79.899 Other long term (current) drug therapy; Z88.5 Allergy status to narcotic agent; Z90.49 Acquired absence of other specified parts of digestive tract; Z88.8 Allergy status to other drugs, medicaments and biological substances; Z81.1 Family history of alcohol abuse and dependence; Z82.49 Family history of ischemic heart disease and other diseases of the circulatory system

== ENCOUNTER → 2021-04-21 | Outpatient (CLI) | payer OTHER ==
[~2021-04-21] MED LIST changes: +BAYER CHEWABLE81 MG PO; +EFFIENT10 MG PO; +LIPITOR40 MG PO; +LISINOPRIL5 MG PO; +NITROGLYCERIN0.4 MG SUBLING
[2021-04-21 16:31] LABS: ALBUMIN 3.7 g/dL (3.4-5.0); CALCIUM 8.8 mg/dL (8.5-10.1); CREATININE 0.7 mg/dL (0.6-1.3); POTASSIUM 3.6 mmol/L (3.5-5.1); TOTAL BILIRUBIN 0.3 mg/dL (<0.1-1.0); TOTAL PROTEIN 7.3 g/dL (6.4-8.2)
== END ==
LOC: M.LAB 15:40
PROVIDERS: ATTEND Nurse Practitioner
DX: R74.8 Abnormal levels of other serum enzymes (principal)

== ENCOUNTER 2021-04-27 13:11 | Inpatient (IN) | payer OTHER ==
[~2021-04-27] VITALS: Ht 139.7 cm; Wt 48.7 kg
[2021-04-27] VITALS (10 sets, daily range): BP systolic 89–124; BP diastolic 44–86
--- NOTE | ~2021-04-27 | EMS ---
[address] [address] EMS Patient Care Report Name: FROYLAN DAVIS Room: [address] IN ..#: [id number] Admission: 04/28/21 Attend Phys: Tish Lyon Discharge: 04/28/21 Date of : 68 Report #: [id number] THIS REPORT FOR: //name// Report Transmitted: 04/28/2021 20:34 EMS Care Summary [facility] Incident [phone] @ 04/27/2021 12:26 Incident Location [address] [place] [address] Patient FROYLAN DAVIS Female, 51 Years 1970 Patient Address [address] [place] [address] Patient History Cardiac - Stent,Myocardial Infarction (AR), Chief Complaint Chest Pain Disposition Transported No Lights/Olive Dispatch Reason Chest Pain (Non-Traumatic) Transported To [facility] 1 was dispatched to a 51 year old female that thought she was having a heart attack. Upon arrival on scene the patient was found sitting on the front step of the house. The patient was not in any large amount of distress. Vitals were obtained after the patient was assisted to the med unit, and a twelve lead was obtained before transport began for hospital staff to interpret. Transport began immediately after the twelve lead was obtained. Vitals were monitored during transport. The patient had taken her prescribed nitro when she started having chest pain, with slight relief of her symptoms. The patient was [facility] [address] [place] [address] EMS Patient Care Report Name: FROYLAN DAVIS Room: [address] IN ..#: [id number] Admission: 04/28/21 Attend Phys: Tish Lyon Discharge: 04/28/21 Date of : 68 Report #: [id number] transferred over to ER staff after arrival at the destination. Med 1 returned in service shortly after. Initial Vitals @12:45P: 84,R: 12,BP: 97/60,Pain: 2/10,GCS: 15,SpO2: 97,Revised Trauma: 12, @12:52P: 80,R: 12,BP: 114/56,Pain: 2/10,GCS: 15,SpO2: 98,Revised Trauma: 12, @13:01P: 78,R: 12,BP: 104/64,Pain: 2/10,GCS: 15,SpO2: 97,Revised Trauma: 12, Impression Chest Pain / Discomfort Timeline 12:26,Call Received 12:26,Dispatched 12:27,En Route 12:35,Initial Responder On Scene 12:35,On Scene 12:36,At Patient 12:41,Depart Scene 12:45,BP: 97/60 M,PULSE: 84,RR: 12 R,SPO2: 97 Ox,ETCO2: ,BG: ,PAIN: 2,GCS: 15, 12:52,BP: 114/56 M,PULSE: 80,RR: 12 R,SPO2: 98 Ox,ETCO2: ,BG: ,PAIN: 2,GCS: 15, 13:01,BP: 104/64 M,PULSE: 78,RR: 12 R,SPO2: 97 Ox,ETCO2: ,BG: ,PAIN: 2,GCS: 15, 13:08,At Destination 13:10,Transfer Patient 13:51,Call Closed 13:51,In District Disclaimer v1.1 Copyright 2020 [employer] This EMS Care Summary contains data elements from the applicable legal record (which may be displayed differently). It is designed to provide pertinent information for the following purposes: continuity of care, clinical quality, and state data reporting. The complete legal record is available to ED staff and administrators of the receiving hospital in [employer] Patient Tracker. All data is provided "as is."
[2021-04-27 13:41] LABS: ABSOLUTE EOSINOPHILS 0.2 thou/uL (0.0-0.7); ABSOLUTE LYMPHOCYTES 1.5 thou/uL (0.8-5.3); ABSOLUTE MONOCYTES 0.4 thou/uL (0.0-1.2); ABSOLUTE NEUTROPHILS 4.8 thou/uL (1.6-8.1); BASOPHILS 0.4 %; EOSINOPHILS 2.8 %; HEMATOCRIT 36.3 % (37.0-47.0); HEMOGLOBIN 12.5 gm/dL (12.0-15.0); MCH 31.4 pg (26.0-34.0); MCHC 34.4 g/dL (28.0-37.0); MCV 91.3 fL (80.0-100.0); MONOCYTES 6.3 %; MPV 7.4 fl. (7.2-11.1); NUCLEATED RBCS 0 /100WBC; PLATELET COUNT* 270 thou/uL (150-400); POLYS 68.5 %; RBC 3.98 mil/uL (4.20-5.00); RDW-CV 12.8 % (10.5-14.5)
[2021-04-27 13:58] LABS: CALCIUM 8.5 mg/dL (8.5-10.1); CREATININE 0.7 mg/dL (0.6-1.3); POTASSIUM 3.5 mmol/L (3.5-5.1)
[2021-04-27 14:05] LABS: ALBUMIN 3.6 g/dL (3.4-5.0); TOTAL BILIRUBIN 0.3 mg/dL (<0.1-1.0); TOTAL PROTEIN 6.9 g/dL (6.4-8.2)
--- NOTE | 2021-04-27 15:34 | EKG ---
[place] [address] ELECTROCARDIOGRAM REPORT Name: FROYLAN DAVIS Room: [address] M.R.#: [id number] Admission: 04/27/21 Attend Phys: Stefano Barahona Discharge: Date of : 68 Date of Service: 04/27/21 1314 Report #: [id number] THIS REPORT FOR: //name// [facility] ED Test Date: 2021-04-27 Test Time: 13:14:59 Pat Name: FROYLAN DAVIS Department: Room: [facility] Gender: F Die Engraver: YOSI : 1970 Requested By: Catracho Viera Order Number: [id number] MD: Ermias Mart Measurements Intervals [place] Rate: 81 P: 42 WI: 121 QRS: 80 QRSD: 81 T: -19 QT: 373 QTc: 433 Interpretive Statements Sinus rhythm Low voltage, precordial leads Borderline T abnormalities, inferior leads Compared to ECG 04/12/2021 05:19:44 Low QRS voltage now present T-wave abnormality now present Electronically Signed On 04-27-2021 15:33:59 CDT by Ermias Mart [email or web address] <ELECTRONICALLY SIGNED> By: Ermias Mart MD, [facility] 04/27/21 1533 1314 1314 Ermias Mart MD, [facility] /EPI
[2021-04-27] MEDS ORDERED: CRESTOR5 MG PO (16:50)
[2021-04-27 18:15] LABS: POTASSIUM 3.4 mmol/L (3.5-5.1)
[2021-04-27 20:01] LABS: INR 1.1; PROTIME 11.7 Seconds (9.20-11.50)
[2021-04-27 20:10] LABS: APTT > 139.0 Seconds (25.0-31.3)
[2021-04-28] VITALS: BP 78/48
[2021-04-28 04:00] VITALS: BP 98/52
[2021-04-28 04:43] LABS: HEMATOCRIT 33.5 % (37.0-47.0); HEMOGLOBIN 11.4 gm/dL (12.0-15.0); MCH 31.1 pg (26.0-34.0); MCHC 33.9 g/dL (28.0-37.0); MCV 91.7 fL (80.0-100.0); MPV 7.9 fl. (7.2-11.1); RBC 3.66 mil/uL (4.20-5.00); RDW-CV 13.1 % (10.5-14.5); WBC 6.3 thou/uL (4.0-11.0)
[2021-04-28 05:13] LABS: BUN 16 mg/dL (7-18); CHLORIDE 107 mmol/L (98-107); GLUCOSE 96 mg/dL (70-99); TC:HDL 3.5 Ratio (Not establshd); VLDL 14 mg/dL (<40)
[2021-04-28 05:15] LABS: ANION GAP 10 mmol/L (7-16); CALCIUM 8.1 mg/dL (8.5-10.1); CHOLESTEROL 137 mg/dL (<200); CO2 26 mmol/L (21-32); CREATININE 0.7 mg/dL (0.6-1.3); HDL CHOLESTEROL 39 mg/dL (>40); LDL CHOLESTEROL 84 mg/dL (<100); SODIUM 143 mmol/L (136-145); TRIGLYCERIDE 72 mg/dL (<150); TROPONIN-I LEVEL 0.25 ng/mL (<0.06)
[2021-04-28 05:18] LABS: SERUM ASSESSMENT CLEAR
[2021-04-28 08:00] VITALS: BP 91/52
--- NOTE | 2021-04-28 10:18 | EKG ---
[place] [address] ELECTROCARDIOGRAM REPORT Name: FROYLAN DAVIS Room: [address] M.R.#: [id number] Admission: 04/27/21 Attend Phys: Stefano Barahona Discharge: Date of : 68 Date of Service: 04/28/21 0331 Report #: [id number] THIS REPORT FOR: //name// [facility] Test Date: 2021-04-28 Test Time: 03:31:11 Pat Name: FROYLAN DAVIS Department: Room: [address] Gender: F Strategic Business Development: LEILANI : 1970 Requested By: Ermias Mart Order Number: [id number] Marina MD: Ermias Mart Measurements Intervals [place] Rate: 58 P: 49 NC: 129 QRS: 69 QRSD: 95 T: 7 QT: 397 QTc: 390 Interpretive Statements Sinus rhythm Low voltage, precordial leads Compared to ECG 04/27/2021 13:14:59 rate has slowed Electronically Signed On 04-28-2021 10:18:45 CDT by Ermias Mart [email or web address] <ELECTRONICALLY SIGNED> By: Ermias Mart MD, [facility] 04/28/21 1018 0331 0331 Ermias Mart MD, [facility] /EPI
[2021-04-28 13:35] VITALS: BP 91/52
[2021-04-28 16:00] VITALS: BP 91/52
--- NOTE | 2021-05-01 10:42 | CARD ---
[address] [address] CARDIAC CATH REPORT Name: FROYLAN DAVIS Room: [address] IN [facility].#: [id number] Admission: 04/28/21 Attend Phys: Tish Lyon Discharge: 04/28/21 Date of : 68 Report #: [id number] THIS REPORT FOR: cc: Marquita Sylvester Ahmad W. DO Blick, David R. MD [facility] ~ APPROVED REPORT Study performed: 04/27/2021 17:12:19 Patient Details Patient Status: In-Patient Room #: The patient is a 51 year-old female Event Personnel Metal Bending Machine Operator- Ermias Mart, RN- Keyshawn Reich, Scrub- Jeremy Farris, Monitor- Hannah Marmolejo Procedures Performed Access- Right Radial Artery, LHC w/wo coronaries, HAKEEM Place w/wo Plasty Single RCA Hemostasis- Vascband Indication Abnormal ECG, Chest pain Risk Factors Hypercholesterolemia, Coronary Artery Disease, Tobacco History () Previous Procedures/Diagnoses Previous PCI, Previous OR Admission/Lab Medications/Medications given during procedure Heparin Unfract. Procedure Narrative The patient was brought urgently to the Cardiac Catheterization Laboratory and was prepped and draped in a sterile manner. The right wrist was infiltrated with 2% Lidocaine subcutaneous anesthesia. IV conscious sedation was used throughout procedure with appropriate monitoring and was performed in the presence of a registered nurse who was an independent trained observer other than the physician performing the procedure. A 6Fr Slender [place] sheath was inserted into the right radial artery. Coronary angiography was performed [address] [address] CARDIAC CATH REPORT Name: FROYLAN DAVIS Room: [address]#: [id number] Admission: 04/28/21 Attend Phys: Tish Lyon Discharge: 04/28/21 Date of : 68 Report #: [id number] using coronary diagnostic catheters. The right coronary system was accessed and visualized with a Diagnostic 6 Fr JR 4 catheter. The left coronary system was accessed and visualized with a Diagnostic 6 Fr JL 4 catheter. The left ventricle was accessed and visualized with a Diagnostic 6 Fr Pigtail catheter. Left ventricular/Aortic Valve gradient assessed via catheter pullback. Left ventriculogram was performed in GARZA projection. Closure device was deployed with a 6 Fr vascband. The patient tolerated the procedure well and there were no complications associated with the procedure. There was no hematoma. Intraoperative Conscious Sedation Sedation start time: 17:36 Case end Time: 18:20 Fentanyl 50.0 mcg Versed 5.0 mg Fluoro Time: 8.2 minutes Dose: DAP 06775 cGycm2 635.46 mGy Contrast Type and Amount: Visipaque 90 ml Coronary Angiography The patient's coronary anatomy is right dominant. Diagnostic Cath Left Main 30% proximal stenosis LAD 30% proximal stenosis Diagonal 2 40% proximal stenosis Circumflex mid stent had 0% stenosis Right Coronary 80% mid stenosis R PDA 50% mid stenosis Left Ventriculography The left ventricle is in size with normal contractility. The left ventricular ejection fraction is estimated to be 50-55%. Left ventricular wall motion abnormalities are not present. There is no mitral insufficiency. Hemodynamics The aortic pressure is 106/48 mmHg with a mean of 52 mmHg. The left ventricular pressure is 100/10 mmHg with a mean of mmHg. The left ventricular end diastolic pressure is 12 mmHg. There was no gradient across the aortic valve upon pullback. Pullback from the left ventricle to the aorta revealed no gradient [place] [address] CARDIAC CATH REPORT Name: FROYLAN DAVIS Room: [address]#: [id number] Admission: 04/28/21 Attend Phys: Tish Lyon Discharge: 04/28/21 Date of : 68 Report #: [id number] PCI Technique Lesion Anticoagulation was achieved with Heparin. Patient was preloaded with Effient. Percutaneous coronary intervention was performed on the mid right coronary artery. The lesion stenosis prior to intervention was 80% with TARA 3 flow. A JCR4 Guide Catheter was used to engage the rca ostium. A BMW 190CM Interventional Guidewire was used to cross the lesion. STENT DEPLOYMENT A drug-eluting stent Gerry RX stent 3.0 x 26 mm was inserted and inflated up to 20atm for 10seconds. Repeat angiography revealed the following post-stent deployment results: 30% stenosis. Additional Inflation: 22atm for 12seconds. POST STENT DEPLOYMENT BALLOON DILATION A Balloon catheter EA Trek RX 3.5 x 15 mm was inserted and inflated up to 18atm for 10seconds. Repeat angiography revealed the following post-dilatation results: 0% stenosis. Additional Inflation: 20atm for 12seconds. Final angiography reveals 0 % stenosis with TARA 3 flow. Conclusion 1. no restenosis noted of a stent in the mid circumflex artery. 2. 80% mid stenosis of the RCA 3. successful placement of a drug eluting stent in the mid RCA 4. LVEF 50-55% Recommendations Smoking Cessation Aggressive Medical Therapy <ELECTRONICALLY SIGNED> By: Ermias Mart MD, [facility] 05/01/21 1042 1042 1042Davitish Mart MD, FACC /INF
--- NOTE | 2021-05-03 12:01 | CON ---
[address] [address] CONSULTATION Name: FROYLAN DAVIS Room: [address] M.R.#: [id number] Admission: 04/28/21 Attend Phys: Tish Lyon Discharge: 04/28/21 Date of : 68 Report #: [id number] THIS REPORT FOR: cc: Marquita Sylvester Ahmad W. DO Biggs, F. Douglas MD [facility] ~ DATE OF CONSULTATION: 04/27/2021 CARDIOLOGY CONSULTATION HISTORY OF PRESENT ILLNESS: I was asked by the Emergency Room physician to see this 51-year-old white female in Cardiology consultation for evaluation and treatment of this 51-year-old woman with chest pain. This lady had a coronary stent recently. It was done by Dr. Bell. She had two stents in her circumflex. That procedure was done about 2 weeks ago, was done here. She came back to the Emergency Room today with chest pain again, it was very similar to her previous chest pain. The previous chest pain was a little higher in her chest and a little bit more to the left in her chest, this is the lower substernal area. She gives a positive Xavier sign when she describes it, it is fairly severe. She says it has a sharp quality. It does radiate to her back. Her previous pain also radiated to her back. She is still having pain. She has had 4 nitros today since noon. The pain began at noon. It is now nearly 5 o'clock. She says the pain tends to wax and wane a bit similar to what her previous UT pain was like, her previous one was apparently a STEMI. She says it hurts to breathe a little bit. She has had diaphoresis, nausea, but no vomiting and she is short of breath. Her EKG shows minor T-wave inversions in the inferior and lateral leads. I do not have a previous EKG for comparison. Two troponins have been negative. However, this lady continues to have pain. PAST MEDICAL HISTORY: Her past medical history is fairly unremarkable. Only the previous UT is remarkable. She does not have diabetes, high blood pressure or high cholesterol to her knowledge. She does smoke and is still smoking. I told her in no uncertain terms today to stop smoking. She has been taking her prasugrel or Effient. She has also been taking aspirin 81 mg daily. She is on lisinopril 5 mg daily. She has had bradycardia and has been able to take a beta ronan. She is on atorvastatin 40. SOCIAL HISTORY: Otherwise unremarkable. FAMILY HISTORY: Unremarkable. REVIEW OF SYSTEMS: Unremarkable. PHYSICAL EXAMINATION: HEENT: Her head is [place]ra[place]. [place] [address] CONSULTATION Name: FROYLAN DAVIS Room: [address] IN [facility].#: [id number] Admission: 04/28/21 Attend Phys: Tish Lyon Discharge: 04/28/21 Date of : 68 Report #: [id number] VITAL SIGNS: Her pulse was 70 and regular, blood pressure was 100/60, respirations 16 and regular. She is clinically afebrile. NECK: Supple. There is no jugular venous distention or hepatojugular reflux. LUNGS: Clear to auscultation and percussion. HEART: Revealed normal first and second heart sound. There is soft S4. There is no S3. There are no murmurs, rubs, thrills, heaves or gallops. PMI is nondisplaced. ABDOMEN: Soft, flat, nontender, no palpable masses, no organomegaly. EXTREMITIES: Revealed no cyanosis, clubbing or edema. NEUROLOGIC: The patient mentated normally, talked normally and moved all extremities normally. ASSESSMENT: 1. Chest pain that likely represents unstable angina. 2. Coronary artery disease. 3. Status post recent ST elevation myocardial infarction. 4. Status post recent two stents in her circumflex. Note this lady was supposed to come back for a staged procedure in a couple of weeks for another lesion. I believe that lesion was also in the circumflex. RECOMMENDATIONS: I think she should have cardiac catheterization and coronary angiography. Dr. Mart has already been called and has seen her. She is to go to the laborer heading this afternoon. Thank you very much for asking me to see this patient. If there are any questions, please feel free to contact me. <ELECTRONICALLY SIGNED> By: Swathi Marion MD, FACC 05/03/21 [id number]. Nav Marion MD, FACC /nt
== END 2021-04-28 16:48 | disposition home or self-care (01) | DRG 247 ==
LOC: M.ERS 13:11 → M.TBA-ER 14:40 → M.2W 16:18
PROVIDERS: Emergency Medicine Emergency Medical Services; Internal Medicine; Internal Medicine Cardiovascular Disease; ADMIT Internal Medicine; ATTEND Internal Medicine
PROC: 4A023N7 Measurement of Cardiac Sampling and Pressure, Left Heart, Percutaneous Approach (ICD-10-PCS; principal; 2021-04-28)
PROC: B215YZZ Fluoroscopy of Left Heart using Other Contrast (ICD-10-PCS; principal; 2021-04-28)
PROC: 027034Z Dilation of Coronary Artery, One Artery with Drug-eluting Intraluminal Device, Percutaneous Approach (ICD-10-PCS; principal; 2021-04-28)
PROC: B211YZZ Fluoroscopy of Multiple Coronary Arteries using Other Contrast (ICD-10-PCS; principal; 2021-04-28)
DX: I25.110 Atherosclerotic heart disease of native coronary artery with unstable angina pectoris (principal); M94.0 Chondrocostal junction syndrome [Tietze]; F17.210 Nicotine dependence, cigarettes, uncomplicated; G89.18 Other acute postprocedural pain; E78.5 Hyperlipidemia, unspecified; Z20.822 Contact with and (suspected) exposure to COVID-19; Z79.82 Long term (current) use of aspirin; Z79.899 Other long term (current) drug therapy; Z88.5 Allergy status to narcotic agent; Z88.8 Allergy status to other drugs, medicaments and biological substances; I25.2 Old myocardial infarction; Z95.5 Presence of coronary angioplasty implant and graft; Z72.89 Other problems related to lifestyle